=== PATIENT | female | born 1980 | race Caucasian/White ===

== ENCOUNTER 2017-09-08 07:23 | Day surgery (SDC) | payer MEDICAID ==
[~2017-09-08] VITALS: Ht 154.9 cm; Wt 84.1 kg
[~2017-09-08 07:23] MED LIST: ACET-2119 PO; BACL10TA PO; BUPR1PAT TOP; CLON1TAB4 PO; DOCU-28 PO; EPIN0.3P8 IM; GABA800T2 PO; INSU100I8 SQ; LACRIL OP; LANTUS SUBCUT; MECL-111 PO; OXYB15TA PO; PANT-47 PO; PER10325T PO; PHE12.5T PO; PHEN-716 PO; PROM25TA14 PO; ROPI0.5T PO; SERT100T PO; SERT50TA PO; TRAM50TA2 PO
[2017-09-08] MEDS ORDERED: LIDOcaine 1%/PF (10mg/ml) 5ml vial ONE ×2 (07:30→08:03)
[2017-09-08 08:06] VITALS: BP 117/73
[2017-09-08] MEDS ORDERED: OXYB15TA PO (08:09)
[2017-09-08] MEDS ORDERED: TRAM50TA2 PO (08:09)
== END 2017-09-08 09:30 | disposition home or self-care (01) ==
LOC: SSTAY O 07:23
PROVIDERS: ATTEND Radiology Diagnostic Radiology
DX: T80.219A Unspecified infection due to central venous catheter, initial encounter (principal); E66.9 Obesity, unspecified; F41.9 Anxiety disorder, unspecified; F32.9 Major depressive disorder, single episode, unspecified; E11.9 Type 2 diabetes mellitus without complications; Z86.14 Personal history of Methicillin resistant Staphylococcus aureus infection; Z98.890 Other specified postprocedural states; Z88.6 Allergy status to analgesic agent; Z88.1 Allergy status to other antibiotic agents; Z91.010 Allergy to peanuts; Z88.2 Allergy status to sulfonamides; Z88.8 Allergy status to other drugs, medicaments and biological substances; Z91.018 Allergy to other foods; Y83.8 Other surgical procedures as the cause of abnormal reaction of the patient, or of later complication, without mention of misadventure at the time of the procedure; Y92.89 Other specified places as the place of occurrence of the external cause
CPT/HCPCS: 36589; A6257; A6449; J2001; J7030

== ENCOUNTER 2017-09-10 08:42 | Day surgery (SDC) | payer MEDICAID ==
[~2017-09-10] VITALS: Ht 157.5 cm; Wt 83.9 kg
[2017-09-10] VITALS (16 sets, daily range): BP systolic 125–153; BP diastolic 60–110
[~2017-09-10 08:42] MED LIST changes: -ACET-2119 PO; -DOCU-28 PO; -INSU100I8 SQ; -LANTUS SUBCUT; -PER10325T PO; -PHEN-716 PO; -PROM25TA14 PO; -SERT50TA PO
[2017-09-10] MEDS ORDERED: normal saline 1000ml 1,000 ML IV PRN (09:15)
[2017-09-10 09:45] LABS: BASOPHILS # (AUTO) 0.1 X10'3 (0-0.2); BASOPHILS % (AUTO) 0.7 % (0-1); EOSINOPHILS # (AUTO) 0.7 X10'3 (0-0.9); EOSINOPHILS % (AUTO) 9.9 % (0-6); HEMATOCRIT 35.4 % (35.0-45.0); HEMOGLOBIN 11.3 g/dl (12.0-16.0); LYMPHOCYTES # (AUTO) 2.4 X10'3 (1.1-4.8); LYMPHOCYTES % (AUTO) 32.6 % (21-51); MEAN CORPUSCULAR HEMOGLOBIN 24.5 PG (27.0-31.0); MEAN CORPUSCULAR HGB CONC 31.8 % (33.0-36.5); MEAN CORPUSCULAR VOLUME 77.1 FL (78-98); MEAN PLATELET VOLUME 6.8 FL (7.4-10.4); MONOCYTES # (AUTO) 0.4 X10'3 (0-0.9); MONOCYTES % (AUTO) 5.6 % (2-12); NEUTROPHILS # (AUTO) 3.8 X10'3 (1.8-7.7); NEUTROPHILS % (AUTO) 51.2 % (42-75); PLATELET COUNT 355 X10'3 (140-440); RED CELL DISTRIBUTION WIDTH 17.5 % (11.5-14.5); WHITE BLOOD COUNT 7.5 X10'3 (4.5-11.0)
[2017-09-10] MEDS ORDERED: LIDOcaine 1%/PF (10mg/ml) 5ml vial ONE (10:21)
[2017-09-10] MEDS ORDERED: midazolam 2 mg/2 ml injection IV PRN (10:30)
[2017-09-10] MEDS ORDERED: LIDOcaine 1% (10mg/ml) 2ml vial SQ ONE (10:30)
[2017-09-10] MEDS ORDERED: fentaNYL/PF 50MCG/1 ML 2ML syringe IV PRN (10:30)
[2017-09-10] MEDS ORDERED: fentaNYL/PF 50MCG/1 ML 2ML syringe ONE (10:32)
[2017-09-10] MEDS ORDERED: midazolam 2 mg/2 ml injection ONE (10:32)
[2017-09-10] MEDS ORDERED: LORazepam 2 mg/ml vial IV ONE (10:40)
[2017-09-10] MEDS ORDERED: LORazepam 2 mg/ml vial ONE (10:42)
== END 2017-09-10 13:15 | disposition home or self-care (01) ==
LOC: SSTAY O 08:42
PROVIDERS: ATTEND Radiology Diagnostic Radiology
DX: Z45.2 Encounter for adjustment and management of vascular access device (principal); N39.0 Urinary tract infection, site not specified; E11.9 Type 2 diabetes mellitus without complications; F41.9 Anxiety disorder, unspecified; F32.9 Major depressive disorder, single episode, unspecified; E66.9 Obesity, unspecified; Z68.33 Body mass index [BMI] 33.0-33.9, adult; Z86.14 Personal history of Methicillin resistant Staphylococcus aureus infection; Z79.899 Other long term (current) drug therapy; Z88.0 Allergy status to penicillin; Z88.2 Allergy status to sulfonamides; Z88.6 Allergy status to analgesic agent; Z88.1 Allergy status to other antibiotic agents; Z91.018 Allergy to other foods; Z91.010 Allergy to peanuts
CPT/HCPCS: 36415; 36558; 76937; 77001; 82948; 85025; A6257; A6449; C1751; C1894; J2001; J2060; J2250; J3010; J7030

== ENCOUNTER 2020-04-18 08:54 | Day surgery (SDC) | payer MEDICAID ==
[2020-04-18] VITALS (9 sets, daily range): BP systolic 106–135; BP diastolic 55–95
[~2020-04-18] VITALS: Ht 154.9 cm; Wt 94.8 kg
[~2020-04-18 08:54] MED LIST changes: +ASPI-1265 PO; -BUPR1PAT TOP; +CLON-514 PO; -CLON1TAB4 PO; +FERR325T28 PO; -GABA800T2 PO; +HYDR-4353 PO; +INSU100C10 SQ; +INSU100I31; -LACRIL OP; -MECL-111 PO; +MECL-159 PO; +METO-539 PO; -OXYB15TA PO; +OXYB15TA19 PO; -PHE12.5T PO; +PREG150C PO; +PROM12.510 PO; -TRAM50TA2 PO
[2020-04-18] MEDS ORDERED: normal saline 1000ml 1,000 ML IV SCH (09:30)
[2020-04-18] MEDS ORDERED: tPA-cathflo 2 MG/2 ml IV flush ONE (09:46)
[2020-04-18] MEDS ORDERED: PHEN-786 PO (10:53)
[2020-04-18] MEDS ORDERED: NYSPWD TP (10:54)
[2020-04-18] MEDS ORDERED: DESV50TA20 (10:55)
[2020-04-18] MEDS ORDERED: FERR325T28 PO (10:56)
[2020-04-18] MEDS ORDERED: METH500T6 PO ×2 (10:58)
[2020-04-18] MEDS ORDERED: [UNRECOGNIZED DRUG - CODE] IJ (10:58)
[2020-04-18] MEDS ORDERED: iohexol 300 MG/1 ML 50ml polymer ONE (12:26)
[2020-04-18] MEDS ORDERED: iohexol 300mg/ml 100ml inj. ONE (12:55)
[2020-04-18] MEDS ORDERED: fentaNYL/PF 50MCG/1 ML 2ML syringe ONE ×2 (12:55→13:31)
[2020-04-18] MEDS ORDERED: heparin 1,000 UNITS/NS 500ml 500 ML ONE (12:55)
[2020-04-18] MEDS ORDERED: midazolam 2 mg/2 ml injection ONE (12:55)
[2020-04-18] MEDS ORDERED: LIDOcaine 1%/PF 5ML 10 MG/ML VIAL ONE (12:55)
[2020-04-18] MEDS ORDERED: heparin sodium, porcine/PF 100unit/ml 5ML syringe ONE (13:50)
== END 2020-04-18 16:30 | disposition home or self-care (01) ==
LOC: SSTAY O 08:54
PROVIDERS: ATTEND Radiology Vascular & Interventional Radiology
DX: T82.598A Other mechanical complication of other cardiac and vascular devices and implants, initial encounter (principal); Z88.0 Allergy status to penicillin; Z88.2 Allergy status to sulfonamides; Z88.1 Allergy status to other antibiotic agents; Z88.5 Allergy status to narcotic agent; Z91.010 Allergy to peanuts; Z91.018 Allergy to other foods; Z88.8 Allergy status to other drugs, medicaments and biological substances; Z79.899 Other long term (current) drug therapy; Z79.4 Long term (current) use of insulin; Y83.8 Other surgical procedures as the cause of abnormal reaction of the patient, or of later complication, without mention of misadventure at the time of the procedure; Y92.89 Other specified places as the place of occurrence of the external cause
CPT/HCPCS: 36595; 75901; C1769; C1894; J1642; J1644; J2250; J2997; J3010; Q9967; 36593; 36598; A6213